=== PATIENT | male | born 1990 | race Caucasian/White ===

== ENCOUNTER 2016-10-18 18:22 | Inpatient (IN) | payer BC, OTHER ==
[~2016-10-18] VITALS: Ht 177.8 cm; Wt 86.2 kg
[2016-10-18] MEDS ORDERED: diphenhydrAMINE 50 MG CAPSULE PO PRN (23:00)
[2016-10-18] MEDS ORDERED: HYDROXYZINE PAMOATE 25 MG CAPSULE PO PRN (23:00)
[2016-10-18] MEDS ORDERED: ONDANSETRON 4 MG/2 ML VIAL IM PRN (23:00)
[2016-10-18] MEDS ORDERED: DICYCLOMINE HCL 20 MG TABLET PO PRN (23:00)
[2016-10-18] MEDS ORDERED: MAGNESIUM HYDROXIDE 30 ML LIQUID UDC PO PRN (23:00)
[2016-10-18] MEDS ORDERED: IBUPROFEN 600 MG TABLET PO PRN (23:00)
[2016-10-18] MEDS ORDERED: BUPRENORPHINE HCL 2 MG TAB.SUBL SL PRN (23:00)
[2016-10-18] MEDS ORDERED: CLONIDINE HCL 0.1 MG TABLET PO PRN (23:00)
[2016-10-18] MEDS ORDERED: ONDANSETRON ODT 4 MG TAB.RAPDIS SL PRN (23:00)
[2016-10-18] MEDS ORDERED: MIRALAX 17 GM POWD.PACK PO PRN (23:00)
[2016-10-18] MEDS ORDERED: MAG HYDROX/AL HYDROX/SIMETH 30 ML LIQUID UDC PO PRN (23:00)
[2016-10-18] MEDS ORDERED: ACETAMINOPHEN 325 MG TABLET PO PRN (23:00)
[2016-10-18] MEDS ORDERED: LOPERAMIDE HCL 2 MG CAPSULE PO PRN ×2 (23:00)
[2016-10-18 23:15] VITALS: BP 122/71
[2016-10-18 23:34] LABS: *AMPHETAMINE, URINE POSITIVE (NEGATIVE); *BARBITURATE, URINE NEGATIVE (NEGATIVE); *CANNABINOID, URINE NEGATIVE (NEGATIVE); *COCCAINE, URINE NEGATIVE (NEGATIVE); *OPIATE, URINE POSITIVE (NEGATIVE); *PHENCYCLIDINE SCREEN,URINE NEGATIVE (NEGATIVE)
[2016-10-18] MEDS ORDERED: LORAZEPAM 1 MG TABLET PO ONE (23:45)
[2016-10-19] VITALS: BP 122/71
[2016-10-19] MEDS: METHOCARBAMOL 750 MG TABLET PO PRN ×2 (00:23→20:58)
[2016-10-19] MEDS ORDERED: METHOCARBAMOL 750 MG TABLET ONE (00:26)
[2016-10-19] MEDS ORDERED: LORAZEPAM 1 MG TABLET ONE (00:27)
[2016-10-19 00:39] LABS: THYROID STIMULATING HORMONE 1.286 mIU/mL (0.358-3.740)
[2016-10-19 00:45] LABS: HIV-1 p24 ANTIGEN NON REACTIVE (NONREACTIVE); HIV-1/2 ANTIBODY NON REACTIVE (NONREACTIVE)
[2016-10-19 00:48] LABS: BASOPHILS % (AUTO) 0.4 % (0.0-2.0); EOSINOPHILS # (AUTO) 0.2 K/uL (0.0-0.7); EOSINOPHILS % (AUTO) 1.9 % (0.0-7.0); HEMATOCRIT 41.1 % (40.0-50.0); HEMOGLOBIN 14.4 g/dL (14.0-18.0); LYMPHOCYTES # (AUTO) 3.6 K/uL (0.8-4.8); LYMPHOCYTES % (AUTO) 37.2 % (20.5-51.5); MEAN CORPUSCULAR HEMOGLOBIN 30.4 uug (27.0-31.0); MEAN CORPUSCULAR HGB CONC 35 g/dL (32.0-37.0); MEAN CORPUSCULAR VOLUME 86.7 fL (82.0-92.0); MONOCYTES # (AUTO) 0.8 K/uL (0.1-1.30); MONOCYTES % (AUTO) 8.4 % (0.0-11.0); NEUTROPHILS % (AUTO) 52.1 % (38.5-71.5); PLATELET COUNT (AUTO) 199 K/uL (150-450); RED BLOOD CELL COUNT(AUTO) 4.74 MIL/uL (4.70-6.10); RED CELL DISTRIBUTION WIDTH 12.7 % (11.5-14.5); WHITE BLOOD COUNT (AUTO) 9.6 K/uL (4.0-11.2)
[2016-10-19 03:22] LABS: ETHANOL < 3 MG/DL (0-0)
[2016-10-19 03:27] LABS: ALANINE AMINOTRANSFERASE 20 U/L (16-63); ALBUMIN 4.1 g/dL (3.4-5.0); ALKALINE PHOSPHATASE 100 U/L (50-136); ASPARTATE AMINOTRANSFERASE 30 U/L (15-37); BILIRUBIN,TOTAL 0.5 mg/dL (0.2-1.0); CALCIUM 9.2 mg/dL (8.5-10.1); CARBON DIOXIDE 23 mmol/L (21-32); CHLORIDE 108 mmol/L (98-107); CREATININE 0.9 mg/dL (0.6-1.3); GFR 104 mL/min (>60); GLUCOSE 98 mg/dL (74-106); MAGNESIUM 2.1 mg/dL (1.8-2.4); POTASSIUM 3.7 mmol/L (3.5-5.1); SODIUM SERUM 143 mmol/L (136-145); TOTAL PROTEIN, SERUM 7.6 g/dL (6.4-8.2); UREA NITROGEN, BLOOD 13 mg/dL (7-18)
[2016-10-19 04:00] VITALS: BP 121/76
[2016-10-19] MEDS ORDERED: QUET100T PO (04:03)
[2016-10-19 08:00] VITALS: BP 107/68
[2016-10-19] MEDS ORDERED: TUBERCULIN,PURIF.PROT.DERIV. 5 TU/0.1 ML TEST ID ONE (09:00)
[2016-10-19] MEDS: MULTIVITAMINS,THERAPEUTIC TABLET PO SCH (09:05)
[2016-10-19] MEDS: GABAPENTIN 300 MG CAPSULE PO SCH ×3 (09:05→20:58)
[2016-10-19] MEDS: BUPRENORPHINE HCL 2 MG TAB.SUBL SL SCH ×3 (09:06→20:59)
[2016-10-19 12:00] VITALS: BP 112/62
[2016-10-19] MEDS: VENLAFAXINE XR 75 MG CAP.SR.24H PO SCH (12:08)
[2016-10-19 16:00] VITALS: BP 120/69
[2016-10-19 20:00] VITALS: BP 127/71
[2016-10-19] MEDS: QUETIAPINE FUMARATE 100 MG TABLET PO SCH (20:56)
[2016-10-20 08:00] VITALS: BP 115/63
[2016-10-20] MEDS ORDERED: BUPRENORPHINE HCL 2 MG TAB.SUBL SL SCH (09:00)
[2016-10-20] MEDS: MULTIVITAMINS,THERAPEUTIC TABLET PO SCH (09:20)
[2016-10-20] MEDS: GABAPENTIN 300 MG CAPSULE PO SCH ×2 (09:20→14:57)
[2016-10-20] MEDS: VENLAFAXINE XR 75 MG CAP.SR.24H PO SCH (09:20)
[2016-10-20 12:55] VITALS: BP 113/60
[2016-10-20] MEDS: METHOCARBAMOL 750 MG TABLET PO PRN (14:57)
[2016-10-20] MEDS: BUPRENORPHINE HCL 2 MG TAB.SUBL SL SCH ×2 (14:58→21:22)
[2016-10-20 17:42] VITALS: BP 130/76
[2016-10-20 20:00] VITALS: BP 124/72
[2016-10-20] MEDS ORDERED: GABAPENTIN 300 MG CAPSULE ONE (20:46)
[2016-10-20] MEDS ORDERED: CLONIDINE HCL 0.1 MG TABLET ONE (20:46)
[2016-10-20] MEDS ORDERED: GABAPENTIN 300 MG CAPSULE PO SCH (21:00)
[2016-10-20] MEDS: QUETIAPINE FUMARATE 100 MG TABLET PO SCH (21:20)
[2016-10-20] MEDS: CLONIDINE HCL 0.1 MG TABLET PO SCH (21:21)
[2016-10-21] VITALS: BP 118/62
[2016-10-21 04:00] VITALS: BP 111/57
[2016-10-21 08:02] VITALS: BP 115/64
[2016-10-21] MEDS: BUPRENORPHINE HCL 2 MG TAB.SUBL SL SCH ×3 (08:53→21:47)
[2016-10-21] MEDS: GABAPENTIN 300 MG CAPSULE PO SCH ×3 (08:53→21:46)
[2016-10-21] MEDS: MULTIVITAMINS,THERAPEUTIC TABLET PO SCH (08:53)
[2016-10-21] MEDS: CLONIDINE HCL 0.1 MG TABLET PO SCH ×3 (08:54→21:47)
[2016-10-21] MEDS: VENLAFAXINE XR 75 MG CAP.SR.24H PO SCH (08:54)
[2016-10-21 12:00] VITALS: BP 121/73
[2016-10-21 16:00] VITALS: BP 124/67
[2016-10-21 20:00] VITALS: BP 123/61
[2016-10-21] MEDS: QUETIAPINE FUMARATE 100 MG TABLET PO SCH (21:47)
[2016-10-22] VITALS: BP 100/57
[2016-10-22 04:00] VITALS: BP 91/48
[2016-10-22 05:22] LABS: HCV AB <0.1 s/co ratio (0.0-0.9); HEPATITIS B CORE AB, IgM Negative (Negative); HEPATITIS B SURFACE AG Negative (Negative)
[2016-10-22 08:00] VITALS: BP 116/68
[2016-10-22] MEDS: MULTIVITAMINS,THERAPEUTIC TABLET PO SCH (08:15)
[2016-10-22] MEDS: CLONIDINE HCL 0.1 MG TABLET PO SCH ×3 (08:15→20:51)
[2016-10-22] MEDS: VENLAFAXINE XR 75 MG CAP.SR.24H PO SCH (08:15)
[2016-10-22] MEDS: GABAPENTIN 300 MG CAPSULE PO SCH ×3 (08:15→20:51)
[2016-10-22] MEDS ORDERED: BUPRENORPHINE HCL 2 MG TAB.SUBL SL SCH (09:00)
[2016-10-22 12:00] VITALS: BP 124/70
[2016-10-22 16:02] VITALS: BP 113/65
[2016-10-22 20:00] VITALS: BP 121/72
[2016-10-22] MEDS: QUETIAPINE FUMARATE 100 MG TABLET PO SCH (20:51)
[2016-10-22] MEDS: BUPRENORPHINE HCL 2 MG TAB.SUBL SL SCH (20:52)
[2016-10-23 08:00] VITALS: BP 102/58
[2016-10-23] MEDS ORDERED: VENLAFAXINE XR 75 MG CAP.SR.24H PO SCH (09:00)
[2016-10-23] MEDS: BUPRENORPHINE HCL 2 MG TAB.SUBL SL SCH (09:10)
[2016-10-23] MEDS: GABAPENTIN 300 MG CAPSULE PO SCH ×3 (09:11→20:53)
[2016-10-23] MEDS: VENLAFAXINE XR 150 MG CAP.SR.24H PO SCH (09:11)
[2016-10-23] MEDS: CLONIDINE HCL 0.1 MG TABLET PO SCH ×3 (09:11→20:54)
[2016-10-23] MEDS: MULTIVITAMINS,THERAPEUTIC TABLET PO SCH (09:11)
[2016-10-23 12:00] VITALS: BP 114/69
[2016-10-23 15:51] LABS: *AMPHETAMINE, URINE NEGATIVE (NEGATIVE); *BARBITURATE, URINE NEGATIVE (NEGATIVE); *CANNABINOID, URINE NEGATIVE (NEGATIVE); *COCCAINE, URINE NEGATIVE (NEGATIVE); *OPIATE, URINE NEGATIVE (NEGATIVE); *PHENCYCLIDINE SCREEN,URINE NEGATIVE (NEGATIVE)
[2016-10-23 16:00] VITALS: BP 130/69
[2016-10-23 20:00] VITALS: BP 111/74
[2016-10-23] MEDS: QUETIAPINE FUMARATE 100 MG TABLET PO SCH (20:52)
[2016-10-24 08:14] VITALS: BP 124/77
[2016-10-24] MEDS: MULTIVITAMINS,THERAPEUTIC TABLET PO SCH (08:40)
[2016-10-24 08:41] VITALS: BP 122/77
[2016-10-24] MEDS: VENLAFAXINE XR 150 MG CAP.SR.24H PO SCH (08:41)
[2016-10-24] MEDS: CLONIDINE HCL 0.1 MG TABLET PO SCH (08:41)
[2016-10-24] MEDS: GABAPENTIN 300 MG CAPSULE PO SCH (08:41)
[2016-10-24] MEDS ORDERED: Ibuprofen PO (08:58)
[2016-10-24] MEDS ORDERED: VENL150C2 PO (08:58)
[2016-10-24] MEDS ORDERED: CLON0.1T14 PO (08:58)
[2016-10-24] MEDS ORDERED: HYDR-3895 PO (08:58)
[2016-10-24] MEDS ORDERED: DICY20TA28 PO (08:58)
[2016-10-24] MEDS ORDERED: Gabapentin PO (08:58)
[2016-10-24] MEDS ORDERED: DIPH50CA37 PO (08:58)
== END 2016-10-24 10:01 | disposition other institution (70) | DRG 895 ==
LOC: SRC 21:44
PROVIDERS: ADMIT Internal Medicine; ATTEND Internal Medicine
PROC: HZ2ZZZZ Detoxification Services for Substance Abuse Treatment (ICD-10-PCS; principal; 2016-10-18)
PROC: HZ31ZZZ Individual Counseling for Substance Abuse Treatment, Behavioral (ICD-10-PCS; 2016-10-19)
PROC: HZ41ZZZ Group Counseling for Substance Abuse Treatment, Behavioral (ICD-10-PCS; 2016-10-20)
DX: F11.23 Opioid dependence with withdrawal (principal); F32.1 Major depressive disorder, single episode, moderate; F17.210 Nicotine dependence, cigarettes, uncomplicated; F13.10 Sedative, hypnotic or anxiolytic abuse, uncomplicated; G47.00 Insomnia, unspecified; L70.0 Acne vulgaris; Z81.1 Family history of alcohol abuse and dependence; Z82.49 Family history of ischemic heart disease and other diseases of the circulatory system; F41.9 Anxiety disorder, unspecified; Z79.899 Other long term (current) drug therapy
CPT/HCPCS: 36415; 70030-TC; 71010; 80307; 83735; 84443; 85025; 86580; 86592; 86705; 86803; 87340; 87806; 93005; A4663; G6040-TC